=== PATIENT | female | born 1960 | race Caucasian/White ===

== ENCOUNTER → 2024-02-01 10:15 | Outpatient (REF) | payer BC, SELFPAY | LOC: HWRAD 10:15 | PROVIDERS: ATTENDING PHYSICIAN Physician Assistant Medical | DX: E04.9 Nontoxic goiter, unspecified (principal) | CPT/HCPCS: 76536 ==

== ENCOUNTER → 2024-04-29 11:06 | Outpatient (REF) | payer BC, SELFPAY | LOC: HWWDC 11:06 | PROVIDERS: ATTENDING PHYSICIAN Obstetrics & Gynecology; FAMILY PHYSICIAN Physician Assistant Medical | DX: Z78.0 Asymptomatic menopausal state (principal); Z12.31 Encounter for screening mammogram for malignant neoplasm of breast | CPT/HCPCS: 77063; 77067; 77080 ==

== ENCOUNTER → 2024-07-20 06:51 | Outpatient (REF) | payer BC, SELFPAY ==
[2024-07-20 10:02] LABS: % Basophils 1.2 % (0-2); % Immature Granulocytes 0.2 % (0-0.5); % Lymphocytes 36.8 % (20.5-51.1); % Monocytes 8.3 % (1.7-9.3); % Neutrophils 51.5 % (42.2-75.2); Absolute Basophils 0.1 10^3/uL (0-0.2); Absolute Eosinophils 0.1 10^3/uL (0-0.7); Absolute Lymphocytes 1.9 10^3/uL (1.2-3.4); Absolute Monocytes 0.4 10^3/uL (0.1-0.6); Absolute Neutrophils 2.6 10^3/uL (1.4-6.5); Hemoglobin 14.1 g/dL (12.0-16.0); Mean Corp Hgb Conc. 33.6 g/dL (33.0-37.0); Mean Corpuscular Hgb 31.5 pg (27.0-31.0); Mean Platelet Volume 9.4 fL (7.4-10.4); Nucleated Red Blood Cells % 0 %; Platelet Count 330 10^3/uL (130-400); Red Blood Cell Count 4.47 10^6/uL (4.20-5.40); Red Cell Dist. Width 12.5 % (11.5-14.5)
[2024-07-20 10:48] LABS: ALT (SGPT) 14 U/L (0-35); AST (SGOT) 28 U/L (14-36); Albumin 4.4 g/dl (3.5-5.0); Alkaline Phosphatase 71 U/L (38-126); Blood Urea Nitrogen 13 mg/dl (7-17); Calcium 9.8 mg/dl (8.4-10.2); Carbon Dioxide 26 mmol/L (22-30); Chloride 104 mmol/L (98-107); Glucose 90 mg/dl (70-99); Phosphorus 4.2 mg/dl (2.5-4.5); Potassium 4.1 mmol/L (3.5-5.1); Sodium 140 mmol/L (135-145); Total Bilirubin 0.7 mg/dl (0.2-1.3); eGFR > 60.00
[2024-07-20 11:00] LABS: Vitamin D, 25-OH*** 53.2 ng/mL (30-80)
[2024-07-20 11:13] LABS: TSH 2.29 uIU/ml (0.47-4.68)
[2024-07-20 13:17] LABS: tTG IgA Antibody 4.3 EU/ml (0-19); tTG IgG Antibody 4.2 EU/ml (0-19)
[2024-07-21 02:38] LABS: IgA 229 mg/dl (70-400)
[2024-07-22 08:20] LABS: Endomysial IgA Antibody Titer <1:10 (<1:10)
[2024-07-23 01:07] LABS: Albumin 4.21 g/dL (3.75-5.01); Alpha 1 Globulin 0.21 g/dL (0.19-0.46); Alpha 2 Globulin 0.65 g/dL (0.48-1.05); SPEP IFE Reflex Not Done; Total Protein-Electrophoresis 6.7 g/dL (6.3-8.2)
== END ==
LOC: HWRAD 06:51
PROVIDERS: ATTENDING PHYSICIAN Physician Assistant; FAMILY PHYSICIAN Physician Assistant Medical; REFERRING PHYSICIAN Obstetrics & Gynecology
DX: M81.0 Age-related osteoporosis without current pathological fracture (principal); M81.6 Localized osteoporosis [Lequesne]; Z82.62 Family history of osteoporosis; C90.00 Multiple myeloma not having achieved remission; E03.9 Hypothyroidism, unspecified; E21.4 Other specified disorders of parathyroid gland; E55.9 Vitamin D deficiency, unspecified; E83.39 Other disorders of phosphorus metabolism; K90.0 Celiac disease; R82.994 Hypercalciuria
CPT/HCPCS: 36415; 72050; 72072; 72110; 80053; 82306; 82784; 83516; 83970; 84100; 84155; 84165; 84443; 85025; 86231

== ENCOUNTER → 2024-07-21 07:26 | Outpatient (REF) | payer BC, SELFPAY ==
[2024-07-21 11:24] LABS: Urine Calcium 8.8 mg/dl
[2024-07-21 12:12] LABS: 24 Hour Urine Total Volume 3000 ml
== END ==
LOC: HWLAB 07:26
PROVIDERS: ATTENDING PHYSICIAN Physician Assistant; FAMILY PHYSICIAN Physician Assistant Medical
DX: C90.00 Multiple myeloma not having achieved remission (principal); E03.9 Hypothyroidism, unspecified; E21.4 Other specified disorders of parathyroid gland; E55.9 Vitamin D deficiency, unspecified; E83.39 Other disorders of phosphorus metabolism; K90.0 Celiac disease; M81.0 Age-related osteoporosis without current pathological fracture; R82.994 Hypercalciuria; Z82.62 Family history of osteoporosis
CPT/HCPCS: 81050; 82340; 82530

== ENCOUNTER 2025-03-28 09:49 | Outpatient (RCR) | payer BC, SELFPAY | END 2025-03-28 23:59 | disposition home or self-care (01) | LOC: RPT 09:49 | PROVIDERS: ATTENDING PHYSICIAN Internal Medicine; FAMILY PHYSICIAN Family Medicine | DX: K59.01 Slow transit constipation (principal); M62.89 Other specified disorders of muscle; Z73.6 Limitation of activities due to disability; K58.9 Irritable bowel syndrome, unspecified | CPT/HCPCS: 97110; 97140; 97162; 97530 ==

== ENCOUNTER 2025-04-25 08:56 | Outpatient (RCR) | payer BC, SELFPAY | END 2025-04-25 23:59 | disposition home or self-care (01) | LOC: RPT 08:56 | PROVIDERS: ATTENDING PHYSICIAN Internal Medicine; FAMILY PHYSICIAN Family Medicine | DX: K59.01 Slow transit constipation (principal); M62.89 Other specified disorders of muscle; Z73.6 Limitation of activities due to disability; K58.9 Irritable bowel syndrome, unspecified | CPT/HCPCS: 97110; 97112; 97140 ==

== ENCOUNTER → 2025-04-27 08:11 | Outpatient (REF) | payer BC, SELFPAY | LOC: RAD 08:11 | PROVIDERS: ATTENDING PHYSICIAN Internal Medicine; FAMILY PHYSICIAN Physician Assistant Medical | DX: K58.1 Irritable bowel syndrome with constipation (principal) | CPT/HCPCS: 74270 ==

== ENCOUNTER → 2025-05-16 06:32 | Outpatient (REF) | payer BC, SELFPAY ==
[2025-05-16 09:45] LABS: ALT (SGPT) 14 U/L (0-35); AST (SGOT) 23 U/L (14-36); Albumin 4.2 g/dl (3.5-5.0); Alkaline Phosphatase 47 U/L (38-126); Blood Urea Nitrogen 14 mg/dl (7-17); Calcium 9.2 mg/dl (8.4-10.2); Carbon Dioxide 25 mmol/L (22-30); Chloride 109 mmol/L (98-107); Glucose 92 mg/dl (70-99); Potassium 4.4 mmol/L (3.5-5.1); Sodium 140 mmol/L (135-145); Total Protein 6.9 g/dl (6.3-8.2); eGFR > 60.00
[2025-05-16 10:03] LABS: Vitamin D, 25-OH*** 44.9 ng/mL (30-80)
== END ==
LOC: HWLAB 06:32
PROVIDERS: ATTENDING PHYSICIAN Internal Medicine; FAMILY PHYSICIAN Physician Assistant Medical; REFERRING PHYSICIAN Obstetrics & Gynecology
DX: M81.0 Age-related osteoporosis without current pathological fracture (principal)
CPT/HCPCS: 36415; 80053; 82306

== ENCOUNTER 2025-05-23 08:16 | Outpatient (RCR) | payer BC, SELFPAY | END 2025-05-23 23:59 | disposition home or self-care (01) | LOC: RPT 08:16 | PROVIDERS: ATTENDING PHYSICIAN Internal Medicine; FAMILY PHYSICIAN Family Medicine | DX: K59.01 Slow transit constipation (principal); M62.89 Other specified disorders of muscle; Z73.6 Limitation of activities due to disability; K58.9 Irritable bowel syndrome, unspecified | CPT/HCPCS: 97112; 97140; 97530 ==

== ENCOUNTER → 2025-07-13 07:32 | Outpatient (REF) | payer BC, SELFPAY | LOC: HWWDC 07:32 | PROVIDERS: ATTENDING PHYSICIAN Obstetrics & Gynecology; FAMILY PHYSICIAN Physician Assistant Medical | DX: Z12.31 Encounter for screening mammogram for malignant neoplasm of breast (principal) | CPT/HCPCS: 77063; 77067 ==

== ENCOUNTER → 2025-08-03 11:57 | Outpatient (REF) | payer BC, SELFPAY ==
[2025-08-03 13:00] LABS: Hematocrit 41.5 % (37.0-47.0); Hemoglobin 13.8 g/dL (12.0-16.0); Mean Corp Hgb Conc. 33.3 g/dL (33.0-37.0); Mean Corpuscular Volume 94.3 fL (81.0-99.0); Platelet Count 289 10^3/uL (130-400); Red Cell Dist. Width 12.3 % (11.5-14.5)
[2025-08-03 13:14] LABS: Blood Urea Nitrogen 14 mg/dl (7-17); Calcium 9.2 mg/dl (8.4-10.2); Carbon Dioxide 27 mmol/L (22-30); Chloride 104 mmol/L (98-107); Glucose 94 mg/dl (70-99); Potassium 4.9 mmol/L (3.5-5.1); Sodium 136 mmol/L (135-145); eGFR > 60.00
== END ==
LOC: REG 11:57
PROVIDERS: ATTENDING PHYSICIAN Obstetrics & Gynecology; FAMILY PHYSICIAN Physician Assistant Medical
DX: N81.6 Rectocele (principal); Z01.818 Encounter for other preprocedural examination
CPT/HCPCS: 36415; 80048; 85027; 93005